=== PATIENT | female | born 1970 | race Caucasian/White ===

== ENCOUNTER 2017-02-14 10:48 | Emergency (ER) | payer BC ==
[2017-02-14 10:53] VITALS: BMI 18.6
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
[2017-02-14 11:29] VITALS: PULSE 80; RESP 18; TEMP 97.8; O2SAT 99
[2017-02-14 12:13] VITALS: BP 144/94
--- NOTE | 2017-02-14 12:25 | RAD ---
PROCEDURE: HISTORY: fall, c/o pain COMPARISON: None TECHNIQUE: Two views FINDINGS: Bone mineralization is normal no fracture bone destruction suggested. IMPRESSION: Negative exam
--- NOTE | 2017-02-14 12:27 | RAD ---
PROCEDURE: Radiographs of the left humerus. HISTORY: fall, c/o pain COMPARISON: None. FINDINGS: BONES: A ulnar-sided distal humeral shaft spur pointing towards the joint is noted No fracture or focal destructive lesion. SOFT TISSUES: Normal. OTHER FINDINGS: Multiple rounded radiopacity -presumably related to clothing and/or undergarments projects over the left lateral breast soft tissues IMPRESSION: No fracture or dislocation
--- NOTE | 2017-02-14 13:06 | RAD ---
PROCEDURE: Left Hip and pelvis X-ray Radiographs. HISTORY: fall, c/o pain COMPARISON: None. FINDINGS: BONES: Normal. No fracture. JOINTS: Normal. SOFT TISSUES: Normal. OTHER FINDINGS: None. IMPRESSION: Negative study
--- NOTE | 2017-02-14 13:07 | RAD ---
PROCEDURE: Radiographs of the left elbow. HISTORY: fall, c/o pain COMPARISON: No prior. FINDINGS: BONES: Normal. No fracture. JOINTS: Normal. No osteoarthritis. SOFT TISSUES: Normal. JOINT EFFUSION: None. OTHER FINDINGS: There is a small osteophyte or exostosis on the ventral aspect of the distal humerus. IMPRESSION: No evidence of fracture
== END 2017-02-14 12:56 | disposition home or self-care (01) ==
LOC: ED 10:48
DX: M79.1 Myalgia (principal); M25.522 Pain in left elbow; M79.652 Pain in left thigh; V03.10XA Pedestrian on foot injured in collision with car, pick-up truck or van in traffic accident, initial encounter; Y93.01 Activity, walking, marching and hiking; Y92.410 Unspecified street and highway as the place of occurrence of the external cause
CPT/HCPCS: 73060; 73080; 73502; 73551; 96372; 99285; J1885